=== PATIENT | female | born 1965 | race Caucasian/White ===

== ENCOUNTER → 2017-01-28 | Outpatient (CLI) | payer BC | END | disposition home or self-care (01) | LOC: RAD 15:40 | PROVIDERS: ATTEND Physician Assistant Surgical | DX: S82.122A Displaced fracture of lateral condyle of left tibia, initial encounter for closed fracture (principal); S82.132A Displaced fracture of medial condyle of left tibia, initial encounter for closed fracture; M25.062 Hemarthrosis, left knee; X58.XXXA Exposure to other specified factors, initial encounter; Y93.89 Activity, other specified; Y92.89 Other specified places as the place of occurrence of the external cause; Y99.8 Other external cause status ==